=== PATIENT | male | born 1995 | race Caucasian/White ===

== ENCOUNTER 2017-10-03 19:50 | Emergency (ER) | payer SELFPAY ==
[2017-10-03 19:52] VITALS: BP 138/94; PULSE 99; RESP 15; TEMP 98.1; O2SAT 98
[2017-10-03] MEDS ORDERED: PROPARACAINE HCL 0.5% OPHT SOLN 15 ML BTL EACH EYE ONE (20:45)
[2017-10-03] MEDS ORDERED: DIPHTH/TETANUS/ACEL PERTUSSIS (BOOSTER) 0.5 ML VIAL/PFS IM ONE (20:45)
[2017-10-03] MEDS ORDERED: TETANUS/DIPHTHERIA TOXOID ADULT 0.5 ML VIAL IM ONE (20:45)
[2017-10-03] MEDS ORDERED: DICL0.1S RIGHT EYE (20:46)
--- NOTE | 2017-10-03 20:51 | PD ---
HPI Chief Complaint: Eye Problems/Injury Time Seen by Provider: 20:31 Travel History International Travel<30 days: No Contact w/Intl Traveler<30days: No Traveled to known affect area: No History of Present Illness HPI 21-year-old white male presents to emergency Department with complaints of right eye pain and tearing. 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 He states that he was assisting in welding today when he felt that he may have got something in his right eye. This had happened earlier this afternoon. He had gone home and washed his eye out. He states that persists with right eye discomfort, tearing and feeling as if there may be something in his eye. He denies any diplopia or photophobia. He does not wear contacts or glasses. He states the he was wearing eye protection at the time. It was not welder plastic's glasses. PFSH Past Medical History Medical History: Denies Significant Hx Tetanus Vaccination: > 5 Years Past Surgical History Surgical History: No Previous Surgery Social History Alcohol Use: No Tobacco Use: No Substance Use: No Allergies-Medications (Allergen,Severity, Reaction): Coded Allergies: No Known Allergies (Verified Allergy, Unknown, 10/03/17) Reported Meds & Prescriptions Reported Meds & Active Scripts Active Diclofenac Opth Drops 0.1% Soln 1 Drop RIGHT EYE QID Review of Systems General / Constitutional: No: Fever Eyes: Positive: Redness, Foreign Body Sensation, Pain, Tearing, No: Diploplia, Blurred Vision, Photophobia, Drainage, Visual changes HENT: No: Headaches Cardiovascular: No: Chest Pain or Discomfort Respiratory: No: Shortness of Breath Gastrointestinal: No: Abdominal Pain Genitourinary: No: Dysuria Musculoskeletal: No: Pain Skin: No Rash Neurologic: No: Weakness Psychiatric: No: Depression Endocrine: No: Polydipsia Hematologic/Lymphatic: No: Easy Bruising Physical Exam Narrative GENERAL: Well-developed, well-nourished in no acute distress. Nontoxic appearing. HEAD: Normocephalic, atraumatic. EYES: Pupils equal round and reactive. Extraocular motions intact. No scleral icterus. Both eyes are injected. The right eye the left. Ophthaine instilled in the eyes. The lids are flipped and no foreign bodies seen. His pain is improved. Fluorescein stain is negative for corneal abrasion or ulceration. Visual acuity noted. ENT: TMs clear without erythema. The external auditory canals clear. Nose: clear . Posterior pharynx is pink and moist. No tonsillar edema or exudate. Uvula midline. Airway patent. NECK: Trachea midline.Supple, nontender, moves head freely. No central bony tenderness or spasm. CARDIOVASCULAR: Regular rate and rhythm without murmurs, gallops, or rubs. RESPIRATORY: Clear to auscultation. Breath sounds equal bilaterally. No wheezes , rales, or rhonchi. GASTROINTESTINAL: Abdomen soft, non-tender, nondistended. No hepato-splenomegaly , or palpable masses. No guarding. EXTREMITIES: No clubbing, cyanosis, or edema. No joint tenderness, effusion, or edema noted. BACK: Nontender without deformity or crepitance. No flank tenderness. Data Data Last Documented VS Vital Signs Date Time Temp Pulse Resp B/P (MAP) Pulse Ox O2 Delivery O2 Flow Rate FiO2 10/03/17 19:52 98.1 99 15 138/94 (109) 98 Room Air Orders Orders Proparacaine 0.5% Opth Soln (Alcaine 0.5 (10/03/17 20:45) Zmra-Ief-Ngnigt (Booster) Inj (Boostrix (10/03/17 20:45) Tetanus/Diphtheria Tox Adult (Tetanus/Di (10/03/17 20:45) MDM Medical Decision Making Medical Screen Exam Complete: Yes Emergency Medical Condition: Yes Medical Record Reviewed: Yes Differential Diagnosis MDM: High Differential diagnoses: Acute conjunctivitis (bacterial, viral, allergic, traumatic), glaucoma, iritis, traumatic globe injury, foreign body, corneal abrasion, corneal ulcer, diabetic retinopathy, photokeratitis, herpes keratitis , CMV retinitis Narrative Course Patient's exam does not reveal any obvious foreign body. He may have had something that may have been irrigated out prior to coming in. This also may be a photo keratitis from welding. Patient is advised to follow-up with an button breaker tomorrow. He sent home on diclofenac drops. Diagnosis Primary Impression: Acute right eye pain Referrals: Emerald Marcos MD 1 day Patient Instructions: Departure Forms: Tests/Procedures, Work Release Special Instructions: No work times one day. Additional Instructions: Rest. Wash eyelashes with baby shampoo 3 times daily. Cool compresses. Diclofenac ophthalmic drops. Followup with an eye doctor in tomorrow Return to the ER if any problems. Med/Other Pt SpecificInfo: Prescription(s) given Scripts Diclofenac Opth Drops (Diclofenac Opth Drops) 0.1% Soln 1 DROP RIGHT EYE QID for Pain Management, #2.5 ML 0 Refills Prov: Reyna Lam DO 10/03/17 Disposition: 01 DISCHARGE HOME Condition: Stable Hrebert Cervantes Oct 03, 2017 20:51
== END 2017-10-03 21:08 | disposition home or self-care (01) ==
LOC: NEPK 19:50
DX: H57.11 Ocular pain, right eye (principal); Z23 Encounter for immunization
CPT/HCPCS: 90471; 90714

== ENCOUNTER 2017-12-17 23:11 | Emergency (ER) | payer SELFPAY ==
[~2017-12-17] VITALS: Ht 185.4 cm; Wt 86.0 kg
[~2017-12-17 23:11] MED LIST: DICL0.1S RIGHT EYE
[2017-12-17 23:14] VITALS: BP 122/56; PULSE 118; RESP 16; TEMP 98.7; O2SAT 97
--- NOTE | 2017-12-17 23:52 | PD ---
HPI Chief Complaint: Foreign Body Time Seen by Provider: 23:47 Travel History International Travel<30 days: No Contact w/Intl Traveler<30days: No Traveled to known affect area: No History of Present Illness HPI The patient is a 21-year-old male who presents to the emergency department with 2 different complaints. 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 The patient believes he got small slivers of steel into both eyes. He developed bilateral eye pain at that time, does note mild redness, has a foreign body sensation. He states his tetanus shot is up-to-date. The patient also complains of a fever with chills, sweats, congestion, and body aches. He denies any nausea, vomiting, diarrhea, or abdominal pain. He did not receive an influenza vaccination this year. He did take ibuprofen prior to arrival. Symptoms are moderate, possibly exacerbated after welding, and there are no current alleviating factors. PFSH Past Medical History Medical History: Denies Significant Hx Tetanus Vaccination: < 5 Years Influenza Vaccination: No Past Surgical History Surgical History: No Previous Surgery Social History Alcohol Use: No Tobacco Use: No Substance Use: No Allergies-Medications (Allergen,Severity, Reaction): Coded Allergies: No Known Allergies (Verified Allergy, Unknown, 10/03/17) Reported Meds & Prescriptions Reported Meds & Active Scripts Active Diclofenac Opth Drops 0.1% Soln 1 Drop RIGHT EYE QID Review of Systems Except as stated in HPI: all other systems reviewed are Neg General / Constitutional: Positive: Fever, Chills Eyes: Positive: Redness, Foreign Body Sensation, Pain, No: Blurred Vision, Photophobia, Visual changes HENT: Positive: Congestion, No: Sore Throat Respiratory: Positive: Cough, No: Shortness of Breath Gastrointestinal: No: Nausea, Vomiting, Diarrhea, Abdominal Pain Genitourinary: No: Dysuria Musculoskeletal: Positive: Myalgias Physical Exam Narrative GENERAL: Awake, alert, pleasant 21-year-old male who appears his stated age and is in no acute respiratory distress. SKIN: Focused skin assessment warm/dry. HEAD: Atraumatic. Normocephalic. EYES: Pupils equal and round. Pupils are 3 mm bilateral and reactive. EOMs are intact. I cannot visualize any obvious foreign bodies upon inspection. Therefore, 2 drops of proparacaine applied to the left eye. Fluorescein staining was applied to both eyes and the eyes were visualized with a slit lamp. The patient's vision was 20/13 and 20/15. Slit lamp examination reveals no obvious foreign bodies, no visible rust rings. ENT: No nasal bleeding or discharge. Mucous membranes pink and moist. NECK: Trachea midline. No JVD. CARDIOVASCULAR: Regular, tachycardic with a heart rate of 105. RESPIRATORY: No accessory muscle use. Clear to auscultation. Breath sounds equal bilaterally. GASTROINTESTINAL: Abdomen soft, non-tender, nondistended. No rebound tenderness. MUSCULOSKELETAL: No obvious deformities. No clubbing. No cyanosis. No edema. NEUROLOGICAL: Awake and alert. No obvious cranial nerve deficits. Motor grossly within normal limits. Normal speech. PSYCHIATRIC: Appropriate mood and affect; insight and judgment normal. Data Data Last Documented VS Vital Signs Date Time Temp Pulse Resp B/P (MAP) Pulse Ox O2 Delivery O2 Flow Rate FiO2 12/17/17 23:14 98.7 118 16 122/56 (78) 97 Room Air Orders Orders Proparacaine 0.5% Opth Soln (Alcaine 0.5 (12/18/17 00:00) Influenzae A/B Antigen (12/17/17 23:47) [facility] Medical Decision Making Medical Screen Exam Complete: Yes Emergency Medical Condition: Yes Medical Record Reviewed: Yes Interpretation(s) Date/Time Source Procedure Growth Status 12/17/17 23:50 Nasal Aspirate Influenza Types A,B Antigen ([facility]) - Final NEGATIVE FOR FLU A AND B ANTIGEN.... Complete Differential Diagnosis Differential diagnosis includes ultraviolet keratitis, foreign body, uveitis, iritis, conjunctivitis, viral syndrome, URI, influenza, bronchitis, pneumonia. Narrative Course Influenza screen was sent to lab. Slit-lamp examination was performed, no visible foreign bodies or rust rings. The patient will be treated for ultraviolet keratitis. Flu screen was negative. The patient is advised to alternate Tylenol and Motrin for pain and fever, plenty of fluids to stay hydrated. Work excuse for one day. Diagnosis Primary Impression: Ultraviolet keratitis of both eyes Additional Impression: Viral syndrome Patient Instructions: General Instructions Additional Instructions: Eyedrops as directed. Pain medication as directed. Work excuse for one day. Alternate Tylenol and Motrin for pain and fever. Plenty fluids to stay hydrated. Follow-up with your primary physician. Med/Other Pt SpecificInfo: Prescription(s) given Scripts Hydrocodone-Acetaminophen ([place]) 5 Mg-325 Mg Tab 1 TAB PO Q6H Y for PAIN, #12 TAB 0 Refills Prov: Temo Jack MD 12/18/17 Polymyxin B-Trimethoprim Opth Drops (Polytrim Opth Drops) 10,000-0.1 Unit/Ml-% Soln 1 DROP EACH EYE Q6HR for Mgmt Bacterial Infection for 5 Days, #1 BOTTLE 0 Refills Prov: Temo Jack MD 12/18/17 Disposition: 01 DISCHARGE HOME Condition: Stable Temo Jack MD Dec 17, 2017 23:52
[2017-12-18] MEDS ORDERED: PROPARACAINE HCL 0.5% OPHT SOLN 15 ML BTL EACH EYE ONE
[2017-12-18] MEDS ORDERED: NORC5TAB PO (00:21)
[2017-12-18] MEDS ORDERED: POLY10O EACH EYE (00:21)
== END 2017-12-18 00:39 | disposition home or self-care (01) ==
LOC: NEPE 23:11
DX: H16.8 Other keratitis (principal); B34.9 Viral infection, unspecified
CPT/HCPCS: 87804; 99284